=== PATIENT | male | born 1990 ===

== ENCOUNTER 2017-08-25 23:28 | Observation (INO) | payer SELFPAY ==
[2017-08-25 23:35] VITALS: PULSE 69
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
[2017-08-26 05:26] VITALS: BP 131/75; RESP 14; TEMP 98
[2017-08-26 05:53] VITALS: O2SAT 94
--- NOTE | 2017-08-26 08:26 | CT ---
PROCEDURE: CT HEAD WITHOUT CONTRAST. HISTORY: head injury COMPARISON: None available. TECHNIQUE: Axial computed tomography images were obtained through the head/brain without intravenous contrast. Radiation dose: Total exam DLP = 964 mGy-cm. This CT exam was performed using one or more of the following dose reduction techniques: Automated exposure control, adjustment of the mA and/or kV according to patient size, and/or use of iterative reconstruction technique. FINDINGS: HEMORRHAGE: No intracranial hemorrhage. BRAIN: No mass effect or edema. No atrophy or chronic microvascular ischemic changes. VENTRICLES: Unremarkable. No hydrocephalus. CALVARIUM: Unremarkable. PARANASAL SINUSES: Unremarkable as visualized. No significant inflammatory changes. MASTOID AIR CELLS: Unremarkable as visualized. No inflammatory changes. OTHER FINDINGS: None. IMPRESSION: Normal CT of the Head. This agrees with preliminary report provided by the on-call radiologist.
== END 2017-08-26 05:40 ==
LOC: H.ER 23:28 → H.EROBSV 08-26 01:00
PROVIDERS: ADMIT Emergency Medicine; ATTEND Emergency Medicine
DX: S09.90XA Unspecified injury of head, initial encounter (principal); Y04.0XXA Assault by unarmed brawl or fight, initial encounter; Y93.9 Activity, unspecified; Y92.9 Unspecified place or not applicable; F10.129 Alcohol abuse with intoxication, unspecified; Y90.7 Blood alcohol level of 200-239 mg/100 ml
CPT/HCPCS: 70450; 99284; G0378; G0480